=== PATIENT | male | born 1945 | race African-American/Black ===

== ENCOUNTER 2016-08-05 11:48 | Emergency (ER) | payer MEDICARE, MEDICAID ==
[2016-08-05] MEDS ORDERED: Azithromycin 250 MG TAB ONE (12:26)
[2016-08-05] MEDS ORDERED: Benzonatate 100 MG CAP ONE (12:27)
== END 2016-08-05 13:00 | disposition left against medical advice (07) ==
LOC: MADERS 11:48
DX: K62.89 Other specified diseases of anus and rectum (principal); I10 Essential (primary) hypertension; I25.10 Atherosclerotic heart disease of native coronary artery without angina pectoris; J44.9 Chronic obstructive pulmonary disease, unspecified; F17.210 Nicotine dependence, cigarettes, uncomplicated
CPT/HCPCS: 99283

== ENCOUNTER 2017-03-11 12:26 | Emergency (ER) | payer MEDICARE, MEDICAID ==
[2017-03-11] MEDS ORDERED: Acetaminophen 500 MG TAB ONE (13:22)
--- NOTE | 2017-03-11 14:59 | RAD ---
PA AND LATERAL CHEST: Date: 03/11/17 COMPARISON: 03/04/15 study. HISTORY: Cough. FINDINGS: Heart size and mediastinum are within normal limits. A faint nodular density is seen in the right upp er lobe. This is also noted on a 02/07/17 CT examination. There are COPD type changes with flattening of the hemidiaphragms. IMPRESSION: 1. Right upper lobe pulmonary nodule. 2. COPD. POS: LOREN
== END 2017-03-11 13:39 | disposition home or self-care (01) ==
LOC: MADERS 12:26
DX: J20.9 Acute bronchitis, unspecified (principal); I25.10 Atherosclerotic heart disease of native coronary artery without angina pectoris; I10 Essential (primary) hypertension; F17.210 Nicotine dependence, cigarettes, uncomplicated
CPT/HCPCS: 71020

== ENCOUNTER 2017-05-22 12:30 | Emergency (ER) | payer MEDICARE, MEDICAID ==
--- NOTE | 2017-05-22 13:26 | RAD ---
PA AND LATERAL VIEWS CHEST: HISTORY: Dyspnea. COMPARISON: 03/11/2017 FINDINGS: Changes of COPD are again seen. The heart size is normal. No focal areas of consolidation, pneumoth orax, or pleural effusions are seen. The nodular density in the right upper lobe is better visualize d on the current exam and may be slightly larger. This should be evaluated with a CT scan. No focal areas of consolidation, pneumothoraces, or pleural effusions are seen. CODE T POS: LOREN
[2017-05-22 13:38] LABS: Band 6 % (5-11); Hemoglobin 13.7 g/dL (14.0-18.0); Lymphocytes 18 % (21-51); MDiff Complete? YES; Mean Corpuscular HGB CONC 31.1 g/dL (32.0-36.0); Mean Corpuscular Hemoglobin 27.9 pg (27.0-31.0); Mean Corpuscular Volume 89.9 fl (80.0-94.0); Mean Platelet Volume 6.7 fL (7.4-10.4); Monocytes 9 % (0-10); Neutrophil 67 % (42-75); PLT Morphology Comment Appears Adequate; Platelet Count 237 thou/uL (130-400); RBC Distribution Width 14.7 % (11.5-14.5); Red Blood Cell (RBC) Count 4.92 mill/uL (4.70-6.10); White Blood Cell (WBC) Count 7.9 thou/uL (4.8-10.8)
[2017-05-22 13:43] LABS: ALT (SGPT) 12 U/L (8-55); AST (SGOT) 18 U/L (5-34); Albumin 3.6 g/dL (3.4-4.8); Alkaline Phosphatase 71 U/L (40-150); Anion Gap 14 mmol/L (10-20); BUN (Urea Nitrogen) 18 mg/dL (8.4-25.7); Bilirubin, Total 0.5 mg/dL (0.2-1.2); Calc. Creatinine Clearance 0 mL/min (70-130); Calcium 9.3 mg/dL (7.8-10.44); Carbon Dioxide 28 mmol/L (23-31); Chloride 105 mmol/L (98-107); Estimated GFR-MDRD Greater than 90; Globulin 4.2 g/dL (2.4-3.5); Glucose 95 mg/dL (80-115); Potassium 3.6 mmol/L (3.5-5.1); Protein, Total 7.8 g/dL (5.8-8.1); Sodium 143 mmol/L (136-145)
[2017-05-22 13:44] LABS: CKMB 1.6 ng/mL (0-6.6); Troponin I Less than 0.010 ng/mL (< 0.028)
== END 2017-05-22 14:42 | disposition home or self-care (01) ==
LOC: MADERS 12:30
DX: J18.0 Bronchopneumonia, unspecified organism (principal); R91.8 Other nonspecific abnormal finding of lung field; I10 Essential (primary) hypertension; G89.29 Other chronic pain; F17.210 Nicotine dependence, cigarettes, uncomplicated; Z91.14 Patient's other noncompliance with medication regimen
CPT/HCPCS: 36415; 71046; 80053; 82553; 83880; 84484; 85025; 87040; 94640; 94760; J7620

== ENCOUNTER 2019-11-17 14:27 | Emergency (ER) | payer MEDICARE, OTHER ==
[~2019-11-17 14:27] MED LIST: Iopamidol 370 76% 125 ML VIAL FS ONE; Sodium Chloride 0.9% 100 ML BAG ONE
[2019-11-17 15:32] LABS: Anisocytosis SLIGHT = 6-15 cells (100X) (0-5/hpf); Band 1 % (5-11); Eosinophils 2 % (0-10); Hemoglobin 10.3 g/dL (14.0-18.0); Hypochromia MODERATE=16-30 cells (100X) (0-5/hpf); Lymphocytes 24 % (21-51); MDiff Complete? YES; Mean Corpuscular HGB CONC 29.8 g/dL (32.0-36.0); Mean Corpuscular Hemoglobin 24.6 pg (27.0-31.0); Mean Corpuscular Volume 82.6 fL (78.0-98.0); Mean Platelet Volume 6.3 fL (7.4-10.4); Monocytes 7 % (0-10); Neutrophil 66 % (42-75); Platelet Count 343 thou/uL (130-400); Platelet Morphology Comment Appears Adequate; RBC Distribution Width 16.7 % (11.5-14.5); Red Blood Cell (RBC) Count 4.17 mill/uL (4.70-6.10); Target Cells SLIGHT = 2-5 cells (100X) (0-1/hpf); White Blood Cell (WBC) Count 8.4 thou/uL (4.8-10.8)
[2019-11-17 15:33] LABS: ALT (SGPT) 22 U/L (8-55); AST (SGOT) 21 U/L (5-34); Albumin 2.9 g/dL (3.4-4.8); Alkaline Phosphatase 108 U/L (40-110); Anion Gap 13 mmol/L (10-20); BUN (Urea Nitrogen) 21 mg/dL (8.4-25.7); Bilirubin, Total 0.3 mg/dL (0.2-1.2); Calc. Creatinine Clearance 0 mL/min (70-130); Calcium 8.7 mg/dL (7.8-10.44); Carbon Dioxide 27 mmol/L (23-31); Chloride 103 mmol/L (98-107); Estimated GFR-MDRD Greater than 90; Globulin 4.4 g/dL (2.4-3.5); Glucose 106 mg/dL (83-110); Magnesium 1.9 mg/dL (1.6-2.6); Potassium 3.8 mmol/L (3.5-5.1); Protein, Total 7.3 g/dL (5.8-8.1); Sodium 139 mmol/L (136-145)
[2019-11-17] MEDS ORDERED: Furosemide 20 MG/2 ML VIAL ONE (15:53)
[2019-11-17 15:57] LABS: CKMB 1.7 ng/mL (0-6.6)
[2019-11-17] MEDS ORDERED: Enoxaparin Sodium 60 MG/0.6 ML SYRINGE ONE (16:27)
--- NOTE | 2019-11-17 18:12 | CT ---
CTA CHEST WITH CONTRAST: Technique: Axial tomograms were obtained following angio protocol with multiplanar reconstructions an d 3D post processing. History: Chest pain, shortness of breath. Lung cancer. Comparison: Chest CT 02-07-17 FINDINGS: Pulmonary arteries show adequate opacification. Pulmonary emboli are seen throughout the left lung pu lmonary arteries. Emboli are seen into the superior left upper lobe, mid left upper lobe and left low er lobe. No definite emboli seen in the right lung pulmonary arteries. There is confluent consolidation in the right upper lobe with a cavitary lesion exhibiting an air flu id level. This large cavitary process measures approximately 5-6 cm dimension. There is surrounding c onsolidation and air bronchograms with associated atelectasis. Interstitial thickening is prominent in the right lung base with areas of confluent atelectasis in th e posterior right lower lobe. There is a small right pleural effusion. There is mediastinal and hilar adenopathy with large right hilar mass lesion which is contributing to the right lung atelectasis. Large confluent paratracheal carinal and subcarinal adenopathy. Osseous structures are unremarkable. Images through the upper abdomen show cystic lesions in the live r which were present on the CT of 2017 and probably represent cysts. However, there are other liver l esions that are not definitely cystic that are concerning for hepatic metastasis. IMPRESSION: 1. Positive for pulmonary emboli in the left lung with numerous emboli seen in the arteries to the le ft upper lobe and left lower lobe as described. 2. Large mass with consolidation and atelectasis in the right upper lobe with a large cavitary mass w ith air fluid level as described above. 3. Diffuse mediastinal and bilateral hilar adenopathy with a large right hilar mass. 4. Right pleural effusion. 5. Numerous liver lesions, several of which are probably cystic and were present previously, although there are other lesions that appear new that are indeterminate. Findings relayed to the Emergency Department at time of dictation. POS: AGW
== END 2019-11-17 18:05 | disposition short-term general hospital (02) ==
LOC: MADERS 14:27
DX: I26.99 Other pulmonary embolism without acute cor pulmonale (principal); E87.70 Fluid overload, unspecified; I10 Essential (primary) hypertension; F17.210 Nicotine dependence, cigarettes, uncomplicated; Z79.891 Long term (current) use of opiate analgesic; Z79.899 Other long term (current) drug therapy
CPT/HCPCS: 36415; 71275; 80053; 82553; 83605; 83735; 83880; 84484; 85025; 87040; 93005; 96372; 96374; J1650; J1940; J3490; Q9967